=== PATIENT | male | born 1930 | race Two or more races ===

== ENCOUNTER → 2016-12-27 | Outpatient (CLI) | payer MEDICARE, OTHER ==
[2016-12-27 16:03] LABS: BLOOD UREA NITROGEN 28 mg/dL (7-20); CREATININE RESULT 1.26 mg/dL (0.52-1.25)
== END ==
LOC: OD 15:04
PROVIDERS: ATTEND Radiology Radiation Oncology
DX: C44.41 Basal cell carcinoma of skin of scalp and neck (principal)
CPT/HCPCS: 36415; 82565; 84520

== ENCOUNTER → 2018-01-01 | Outpatient (CLI) | payer MEDICARE ==
--- NOTE | 2018-01-02 10:04 | RADIOLOGY REPORT (SQ) ---
EXAM DESCRIPTION: PET CT SKULL/THIGH COMPLETED DATE/TIME: 01/01/2018 7:59 pm REASON FOR STUDY: BASAL CELL CARCINOMA OF SKIN UNSPECIFIED C44.91 BASAL CELL CARCINOMA OF SKIN, UNS PECIFIED COMPARISON: None. RADIONUCLIDE AND DOSE: 10.0 mCi F18 FDG The route of agent administration: Intravenous FASTING BLOOD SUGAR: 79 mg/dl CONTRAST TYPE AND DOSE: No CT contrast given. TECHNIQUE: Blood glucose level was verified. Above dose of FDG was injected intravenously. 2-D seg mented attenuation correction images were obtained from the base of the skull to the midthighs. Nonc ontrast CT images were obtained for attenuation correction and fusion with emission images. CT image s were performed without oral or intravenous contrast and are not sensitive for parenchymal lesions. A series of overlapping emission PET images were obtained. Images reviewed and manipulated at [facility] work station by the radiologist. Images stored on PACS. LIMITATIONS: None. FINDINGS: HEAD AND NECK: Surgical changes in the soft tissues on the left side. There are two tiny nodules with increased activity. 5 mm nodule deep to the left sternocleidomastoid muscle (CT axial s eries 3, image 76) with mean SUV value 3.85. 3 mm nodule in the subcutaneous fatty tissues located m ore posteriorly (CT axial series 3, image 74) with mean SUV value 2.75. There is diffuse activity in the left trapezius muscle with no focal abnormality. CHEST: There is ill-defined soft tissue density in the left axilla with overall measurement of 1.4 cm (CT axial series 3, image 115). Difficult to differentiate soft tissue from the adjacent axillary a rtery. Minimal increased activity with mean SUV value 1.74. ABDOMEN AND PELVIS: No areas of abnormal metabolic activity in the abdomen or pelvis. Expected physi ologic activity is present in the genitourinary system and bowel. PROXIMAL LOWER EXTREMITIES: No areas of abnormal metabolic activity in the soft tissues of the lower extremities. BONES: No abnormal metabolic activity in the visualized skeleton. ADDITIONAL CT FINDINGS: 3 cm mass in the right lobe of the thyroid. Coronary artery calcifications. Attenuation lesions in the liver most likely hepatic cysts. OTHER: No other significant findings. IMPRESSION: 1. SURGICAL CHANGES IN THE SOFT TISSUES ON THE LEFT SIDE OF THE NECK. TWO SMALL NODULES WITH INCREAS ED ACTIVITY DESCRIBED ABOVE. CONCERNING FOR MALIGNANT INVOLVEMENT, EITHER TINY RESIDUAL PRIMARY T UMOR VERSUS TINY LYMPH NODES. 2. VAGUE DENSITY IN THE LEFT AXILLA WITH MINIMAL INCREASED ACTIVITY. POSSIBLE EARLY ADENOPATHY. 3. 3 CM MASS IN THE RIGHT LOBE OF THE THYROID. THIS WAS BIOPSIED AT [facility] IN Jul BUT PATHOLOGY REPORTS ARE NOT AVAILABLE AT THIS TIME. 4. OTHER CT FINDINGS ABOVE. TECHNICAL DOCUMENTATION: JOB ID: [id number] [employer]- All Rights Reserved Reading location - IP/workstation name: [facility]-RR
== END ==
LOC: RAD 15:34
PROVIDERS: ATTEND Otolaryngology
DX: C44.91 Basal cell carcinoma of skin, unspecified (principal); E07.9 Disorder of thyroid, unspecified
CPT/HCPCS: 78815; A9552